=== PATIENT | female | born 1990 | race American Indian/Alaskan Native ===

== ENCOUNTER 2020-10-01 15:32 | Emergency (ER) | payer SELFPAY ==
--- NOTE | 2020-10-01 20:35 | Emergency Department Report ---
ED General Adult HPI - General Chief complaint: Skin Rash Stated complaint: CHEMICAL BURN Time Seen by Provider: 10/01/20 20:23 Source: patient Mode of arrival: Ambulatory Limitations: No Limitations - History of Present Illness Initial comments: Patient 29-year-old -[place] female who presents for perineum irritation after using Graham 2 days ago patient states erythema itching burning. States similar episode with there previously. However she is sensitive skin form this time. There is no fever, chills, nausea or vomiting there is no dysuria frequency or urgency. No vaginal discharge. No open skin wounds. Symptoms are exacerbated by palpation. Symptoms are relieved by nothing. Primary complaint is itching and burning. - Related Data Previous Rx's Medication Instructions Recorded Last Taken Type Mupirocin [Bactroban 2% OINT] 1 applic TP TID #1 tube 10/01/20 Unknown Rx cephALEXin [Keflex] 500 mg PO Q8HR #21 cap 10/01/20 Unknown Rx diphenhydrAMINE [Benadryl CAP] 25 mg PO Q8HR PRN #15 capsule 10/01/20 Unknown Rx traMADoL [Ultram] 50 mg PO Q6HR PRN #12 tablet 10/01/20 Unknown Rx Allergies Allergy/AdvReac Type Severity Reaction Status Date / Time Penicillins Allergy Unknown Verified 10/01/20 16:51 ED Review of Systems ROS: Stated complaint: CHEMICAL BURN Other details as noted in HPI Constitutional: denies: chills, fever Eyes: denies: eye pain, eye discharge, vision change ENT: denies: ear pain, throat pain Respiratory: denies: cough, shortness of breath, wheezing Cardiovascular: denies: chest pain, palpitations Endocrine: no symptoms reported Gastrointestinal: denies: abdominal pain, nausea, diarrhea Genitourinary: denies: urgency, dysuria, discharge Musculoskeletal: as per HPI Skin: rash (gerneralized erythema bulla warm to touch), pruritus Neurological: denies: headache, weakness, paresthesias Psychiatric: denies: anxiety, depression Hematological/Lymphatic: denies: easy bleeding, easy bruising ED Past Medical Hx - Past Medical History Previous Medical History?: Yes Hx Asthma: Yes - Surgical History Past Surgical History?: No - Medications Home Medications: Home Medications Medication Instructions Recorded Confirmed Last Taken Type Mupirocin [Bactroban 2% OINT] 1 applic TP TID #1 tube 10/01/20 Unknown Rx cephALEXin [Keflex] 500 mg PO Q8HR #21 cap 10/01/20 Unknown Rx diphenhydrAMINE [Benadryl CAP] 25 mg PO Q8HR PRN #15 capsule 10/01/20 Unknown Rx traMADoL [Ultram] 50 mg PO Q6HR PRN #12 tablet 10/01/20 Unknown Rx ED Physical Exam - General Limitations: No Limitations General appearance: alert, in no apparent distress - Head Head exam: Present: atraumatic, normocephalic - Eye Eye exam: Present: normal appearance - ENT ENT exam: Present: normal exam, mucous membranes moist - Neck Neck exam: Present: normal inspection - Respiratory Respiratory exam: Present: normal lung sounds bilaterally. Absent: respiratory distress - Cardiovascular Cardiovascular Exam: Present: regular rate, normal rhythm. Absent: systolic murmur, diastolic murmur, rubs, gallop - GI/Abdominal GI/Abdominal exam: Present: soft, normal bowel sounds - Rectal Rectal exam: Present: deferred - External exam: Present: erythema, other (gerneralized erythema bulla warm to touch) - Extremities Exam Extremities exam: Present: normal inspection, full ROM. Absent: tenderness - Back Exam Back exam: Present: normal inspection, full ROM. Absent: tenderness, CVA tenderness (R), CVA tenderness (L) - Neurological Exam Neurological exam: Present: alert, oriented X3 - Psychiatric Psychiatric exam: Present: normal affect, normal mood - Skin Skin exam: Present: warm, dry, intact, erythema, urticaria. Absent: rash ED Course Vital Signs 10/01/20 16:54 Temperature 98.5 F Pulse Rate 101 H Respiratory 20 Rate Blood Pressure 118/74 O2 Sat by Pulse 100 Oximetry ED Medical Decision Making - Medical Decision Making This is an allergic dermatitis with cellulitis plan: Mupirocin ointment, Keflex p.o., Benadryl as needed, Ultram for pain and burning. Patient will continue soap and water pat dry apply mupirocin follow-up with primary care doctor in 2 to 3 days. Patient verbalized agreement understanding discharge plan. Patient DC'd home stable condition at this time. Critical care attestation.: If time is entered above; I have spent that time in minutes in the direct care of this critically ill patient, excluding procedure time. ED Disposition Clinical Impression: Allergic dermatitis, Cellulitis, perineum Disposition: DC-01 TO HOME OR SELFCARE Is pt being admited?: No Does the pt Need Aspirin: No Condition: Stable Instructions: Cellulitis, Adult, Contact Dermatitis, [id number] Additional Instructions: Stop using NEAT, take medications as prescribed , soap water daily applicy mupuirocin ointment as directed, return if symptoms worsen. Prescriptions: Mupirocin [Bactroban 2% OINT] 1 applic TP TID #1 tube diphenhydrAMINE [Benadryl CAP] 25 mg PO Q8HR PRN #15 capsule PRN Reason: itching cephALEXin [Keflex] 500 mg PO Q8HR #21 cap traMADoL [Ultram] 50 mg PO Q6HR PRN #12 tablet PRN Reason: Pain Referrals: PRIMARY CAREMD [Primary Care Provider] - 3-5 Days MONIQUE PALOMO MD [Staff Physician] - 3-5 Days Forms: Work/School Release Form(ED) Time of Disposition: 20:40
== END 2020-10-01 20:48 | disposition home or self-care (01) ==
LOC: ED 15:32
CPT/HCPCS: 99282

== ENCOUNTER 2020-10-06 09:21 | Emergency (ER) | payer SELFPAY ==
[2020-10-06 09:34] VITALS: BP 146/87
--- NOTE | 2020-10-06 10:34 | Emergency Department Report ---
ED Allergic Reaction HPI - General Chief complaint: Allergic Reaction Stated complaint: ALLERGIC REACTION, SWELLING AND HIVES Time Seen by Provider: 10/06/20 09:40 Source: patient Mode of arrival: Ambulatory Limitations: No Limitations - History of Present Illness Initial Comments: This is a 29-year-old female nontoxic, well nourished in appearance, no acute signs of distress presents to the ED with c/o of itching x2 days. Patient stated that symptoms occurred after taking Benadryl that was prescribed to her during previous visit. Patient otherwise denies any other complaints or symptoms. Denies any facial rash or body rash. Patient denies any drooling, hoarseness or facial swelling. Patient denies any trauma. She denies any fever, chills, nausea, vomiting, chest pain, shortness of breath, headache, stiff neck, numbness or tingling. Patient states allergies to penicillin. MD Complaint: allergic reaction -: days(s) Exposure: medication Symptoms: itching. denies: rash, facial swelling, lip swelling, difficulty swallowing, difficulty breathing, orolingual swelling, hoarseness, syncopy, dizziness, nausea, vomiting, abdominal pain Severity: mild Treatment Prior to Arrival: none Previous Allergy History: none - Related Data Previous Rx's Medication Instructions Recorded Last Taken Type Mupirocin [Bactroban 2% OINT] 1 applic TP TID #1 tube 10/01/20 Unknown Rx cephALEXin [Keflex] 500 mg PO Q8HR #21 cap 10/01/20 Unknown Rx diphenhydrAMINE [Benadryl CAP] 25 mg PO Q8HR PRN #15 capsule 10/01/20 Unknown Rx traMADoL [Ultram] 50 mg PO Q6HR PRN #12 tablet 10/01/20 Unknown Rx Loratadine [Claritin] 10 mg PO DAILY PRN #10 tablet 10/06/20 Unknown Rx Prednisone [predniSONE 10 mg 10 mg PO .TAPER #1 tab.ds.pk 10/06/20 Unknown Rx (6-Day Pack, 21 Tabs)] Allergies Allergy/AdvReac Type Severity Reaction Status Date / Time Penicillins Allergy Unknown Verified 10/01/20 16:51 ED Review of Systems ROS: Stated complaint: ALLERGIC REACTION, SWELLING AND HIVES Other details as noted in HPI Comment: All other systems reviewed and negative Constitutional: denies: chills, fever Eyes: denies: eye pain, eye discharge, vision change ENT: denies: ear pain, throat pain Respiratory: denies: cough, shortness of breath, wheezing Cardiovascular: denies: chest pain, palpitations Endocrine: no symptoms reported Gastrointestinal: denies: abdominal pain, nausea, diarrhea Genitourinary: denies: urgency, dysuria, discharge Musculoskeletal: denies: back pain, joint swelling, arthralgia Skin: denies: rash, lesions Neurological: denies: headache, weakness, paresthesias Psychiatric: denies: anxiety, depression Hematological/Lymphatic: denies: easy bleeding, easy bruising ED Past Medical Hx - Past Medical History Previous Medical History?: Yes Hx Asthma: Yes Additional medical history: allergic reaction - Surgical History Past Surgical History?: No - Social History Smoking Status: Never Smoker Substance Use Type: Alcohol - Medications Home Medications: Home Medications Medication Instructions Recorded Confirmed Last Taken Type Mupirocin [Bactroban 2% OINT] 1 applic TP TID #1 tube 10/01/20 Unknown Rx cephALEXin [Keflex] 500 mg PO Q8HR #21 cap 10/01/20 Unknown Rx diphenhydrAMINE [Benadryl CAP] 25 mg PO Q8HR PRN #15 capsule 10/01/20 Unknown Rx traMADoL [Ultram] 50 mg PO Q6HR PRN #12 tablet 10/01/20 Unknown Rx Loratadine [Claritin] 10 mg PO DAILY PRN #10 tablet 10/06/20 Unknown Rx Prednisone [predniSONE 10 mg 10 mg PO .TAPER #1 tab.ds.pk 10/06/20 Unknown Rx (6-Day Pack, 21 Tabs)] ED Physical Exam - General Limitations: No Limitations General appearance: alert, in no apparent distress - Head Head exam: Present: atraumatic, normocephalic - Eye Eye exam: Present: normal appearance - ENT ENT exam: Present: normal exam, normal orophraynx, other (No facial swelling. No angioedema. Uvula midline.) - Neck Neck exam: Present: normal inspection, full ROM. Absent: lymphadenopathy - Respiratory Respiratory exam: Present: normal lung sounds bilaterally. Absent: respiratory distress, wheezes, rales, rhonchi, stridor, chest wall tenderness, accessory muscle use, decreased breath sounds, prolonged expiratory - Cardiovascular Cardiovascular Exam: Present: regular rate, normal rhythm, normal heart sounds. Absent: irregular rhythm, systolic murmur, diastolic murmur, rubs, gallop - Extremities Exam Extremities exam: Present: normal inspection, full ROM - Back Exam Back exam: Present: normal inspection, full ROM - Neurological Exam Neurological exam: Present: alert, oriented X3, normal gait - Psychiatric Psychiatric exam: Present: normal affect, normal mood - Skin Skin exam: Present: warm, dry, intact, normal color. Absent: rash, cyanosis, diaphoretic, erythema, urticaria, vesicles, petechiae, pallor, abrasion, ecchymosis ED Course Vital Signs 10/06/20 09:30 Temperature 98.5 F Pulse Rate 104 H Respiratory 20 Rate Blood Pressure 146/87 O2 Sat by Pulse 99 Oximetry - Reevaluation(s) Reevaluation #1: 10/06/20 10:31 Patient is speaking in full sentences with no signs of distress noted. ED Medical Decision Making - Medical Decision Making This is a 29-year-old female that presents with allergic reaction. Patient is stable was examined by me. There is no facial swelling. No angioedema. There is no cellulitis. No hoarseness. Patient is discharged with prednisone and Claritin. Patient was referred to Follow-up with a primary care doctor in 3-5 days or if symptoms worsen and continue return to emergency room as soon as possible. At time of discharge, the patient does not seem toxic or ill in appearance. No acute signs of distress noted. Patient agrees to discharge treatment plan of care. No further questions noted by the patient. Critical care attestation.: If time is entered above; I have spent that time in minutes in the direct care of this critically ill patient, excluding procedure time. ED Disposition Clinical Impression: Allergic reaction Qualifiers: Encounter type: initial encounter Qualified Code(s): T78.40XA - Allergy, uns pecified, initial encounter Disposition: - TO HOME OR SELFCARE Is pt being admited?: No Does the pt Need Aspirin: No Condition: Stable Additional Instructions: Follow-up with a primary care doctor in 3-5 days or if symptoms worsen and continue return to emergency room as soon as possible. Prescriptions: Loratadine [Claritin] 10 mg PO DAILY PRN #10 tablet PRN Reason: Itching Prednisone [predniSONE 10 mg (6-Day Pack, 21 Tabs)] 10 mg PO .TAPER #1 tab.ds.pk Referrals: PRIMARY CARE, [Referring] - 3-5 Days KATHY JARAMILLO MD [Staff Physician] - 3-5 Days Forms: Work/School Release Form(ED) Time of Disposition: 10:34
== END 2020-10-06 11:12 | disposition home or self-care (01) ==
LOC: ED 09:21
DX: T78.40XA Allergy, unspecified, initial encounter (principal); J45.909 Unspecified asthma, uncomplicated; Z72.89 Other problems related to lifestyle; Z88.0 Allergy status to penicillin; Z79.899 Other long term (current) drug therapy; X58.XXXA Exposure to other specified factors, initial encounter
CPT/HCPCS: 99282

== ENCOUNTER 2021-08-28 11:14 | Emergency (ER) | payer SELFPAY ==
--- NOTE | 2021-08-28 12:21 | Emergency Department Report ---
ED Asthma HPI - General Chief Complaint: Adult Asthma Stated Complaint: CHEST/BACK PAIN Time Seen by Provider: 08/28/21 11:44 Source: patient Mode of arrival: Ambulatory Limitations: No Limitations - History of Present Illness Initial Comments: 30-year-old female with a history of asthma who presents with an episode of intermittent asthma that started about couple of days ago. Patient also reports some chest pressure during the asthma attack. Patient mentioned having a seasonal allergy as well. She says she takes Claritin but has not got 1 in the last 72 hours. No fever no chills reported. No other modifying or positive factors reported. - Related Data Previous Rx's Medication Instructions Recorded Last Taken Type Mupirocin [Bactroban 2% OINT] 1 applic TP TID #1 tube 10/01/20 Unknown Rx cephALEXin [Keflex] 500 mg PO Q8HR #21 cap 10/01/20 Unknown Rx diphenhydrAMINE [Benadryl CAP] 25 mg PO Q8HR PRN #15 capsule 10/01/20 Unknown Rx traMADoL [Ultram] 50 mg PO Q6HR PRN #12 tablet 10/01/20 Unknown Rx Loratadine [Claritin] 10 mg PO DAILY PRN #10 tablet 10/06/20 Unknown Rx Prednisone [predniSONE 10 mg 10 mg PO .TAPER #1 tab.ds.pk 10/06/20 Unknown Rx (6-Day Pack, 21 Tabs)] hydrOXYzine PAMOATE [Vistaril] 25 mg PO Q6HR PRN 5 Days #10 08/28/21 Unknown Rx capsule predniSONE [Deltasone] 40 mg PO QDAY 5 Days #10 tab 08/28/21 Unknown Rx Allergies Allergy/AdvReac Type Severity Reaction Status Date / Time Penicillins Allergy Unknown Verified 10/01/20 16:51 diphenhydramine AdvReac Hives Verified 08/28/21 11:28 [From Benadryl] ED Review of Systems ROS: Stated complaint: CHEST/BACK PAIN Other details as noted in HPI Comment: All other systems reviewed and negative Respiratory: shortness of breath, wheezing ED Past Medical Hx - Past Medical History Hx Asthma: Yes Additional medical history: allergic reaction - Social History Smoking Status: Never Smoker Substance Use Type: Alcohol - Medications Home Medications: Home Medications Medication Instructions Recorded Confirmed Last Taken Type Mupirocin [Bactroban 2% OINT] 1 applic TP TID #1 tube 10/01/20 Unknown Rx cephALEXin [Keflex] 500 mg PO Q8HR #21 cap 10/01/20 Unknown Rx diphenhydrAMINE [Benadryl CAP] 25 mg PO Q8HR PRN #15 capsule 10/01/20 Unknown Rx traMADoL [Ultram] 50 mg PO Q6HR PRN #12 tablet 10/01/20 Unknown Rx Loratadine [Claritin] 10 mg PO DAILY PRN #10 tablet 10/06/20 Unknown Rx Prednisone [predniSONE 10 mg 10 mg PO .TAPER #1 tab.ds.pk 10/06/20 Unknown Rx (6-Day Pack, 21 Tabs)] hydrOXYzine PAMOATE [Vistaril] 25 mg PO Q6HR PRN 5 Days #10 08/28/21 Unknown Rx capsule predniSONE [Deltasone] 40 mg PO QDAY 5 Days #10 tab 08/28/21 Unknown Rx ED Physical Exam - General Limitations: No Limitations General appearance: alert, in no apparent distress - Head Head exam: Present: normal inspection - Eye Eye exam: Present: normal appearance Pupils: Present: normal accommodation - ENT ENT exam: Present: normal exam, normal orophraynx, mucous membranes moist - Neck Neck exam: Present: normal inspection, full ROM - Respiratory Respiratory exam: Present: normal lung sounds bilaterally. Absent: respiratory distress, wheezes, accessory muscle use - Cardiovascular Cardiovascular Exam: Present: regular rate, normal rhythm, normal heart sounds - GI/Abdominal GI/Abdominal exam: Present: soft, normal bowel sounds. Absent: tenderness, g uarding - Extremities Exam Extremities exam: Present: normal inspection, normal capillary refill - Back Exam Back exam: Present: normal inspection. Absent: CVA tenderness (R), CVA tenderness (L) - Neurological Exam Neurological exam: Present: alert, oriented X3. Absent: altered - Psychiatric Psychiatric exam: Present: normal affect, normal mood - Skin Skin exam: Present: warm, normal color. Absent: rash ED Course - Reevaluation(s) Reevaluation #1: 08/28/21 12:20 Here with asthma attack but noted with unremarkable exam without any wheezing at this point but will go ahead and send patient home with albuterol, and prednisone to be taken for 5 days and weeks well for allergy and anxiety that she reported. Critical care attestation.: If time is entered above; I have spent that time in minutes in the direct care of this critically ill patient, excluding procedure time. ED Disposition Clinical Impression: Asthma attack Qualifiers: Asthma severity: unspecified severity Asthma persistence: unspecified Qualified Code(s): J45.901 - Unspecified asthma with (acute) exacerbation Disposition: 01 HOME / SELF CARE / HOMELESS Is pt being admited?: No Does the pt Need Aspirin: No Condition: Stable Instructions: Asthma, Adult, Asthma, Adult, [id number], Asthma Attack Prevention, Adult Additional Instructions: Take your prednisone as prescribed to help your symptoms : Follow-up with your primary doctor in the next 3 to 5 days for progress 2 night stay to call or return to emergency room if your symptoms worsen Prescriptions: predniSONE [Deltasone] 40 mg PO QDAY 5 Days #10 tab hydrOXYzine PAMOATE [Vistaril] 25 mg PO Q6HR PRN 5 Days #10 capsule PRN Reason: Agitation Referrals: PRIMARY CARE, [Primary Care Provider] - 3-5 Days Time of Disposition: 12:21
== END 2021-08-28 12:48 | disposition home or self-care (01) ==
LOC: ED 11:14
DX: J45.909 Unspecified asthma, uncomplicated (principal)
CPT/HCPCS: 93005; 99282